=== PATIENT | male | born 2000 | race Caucasian/White ===

== ENCOUNTER → 2021-03-20 15:13 | Outpatient (CLI) | payer BC, SELFPAY ==
--- NOTE | ~2021-03-20 | XR_ITS ---
EXAMINATION: XR knee RT 3V DATE: 03/20/2021 15:40 INDICATION: Right knee pain. TECHNIQUE: 3 views of right knee were obtained. COMPARISON: None. FINDINGS: Bone alignment is normal. No fracture. Joint spaces are well maintained. There is no knee j oint effusion. IMPRESSION: 1. Normal right knee. Reviewed, dictated and finalized at location A. IMPRESSION: 1. Normal right knee.
== END ==
PROVIDERS: PCP Nurse Practitioner Family; Visit Provider Nurse Practitioner Family
DX: M25.561 Pain in right knee (principal)
CPT/HCPCS: 73562

== ENCOUNTER 2021-05-19 21:48 | Emergency (ER) | payer BC, SELFPAY ==
[2021-05-19 21:55] VITALS: BP 133/103; PULSE 75; RESP 16; TEMP 36.8; O2SAT 100
--- NOTE | 2021-05-19 21:59 | ED.GENADULT ---
HPI - General Adult General Chief complaint: Dental/Oral Stated complaint: post op pain Time Seen by Provider: 05/19/21 21:51 Source: patient and RN notes reviewed Mode of arrival: ambulatory Limitations: no limitations History of Present Illness HPI narrative: This is a 20 year old male who presents for evaluation of post operative bleeding s/p tonsillectomy. He had a tonsillectomy performed on 05/16/[address] Kobe Jaime . He reports his parents will not let him take any pain medication today so he started screaming at them. He developed bleeding around 2 pm from his surgical site. He reports his bleeding initially stopped but it started again prior to arrival. His bleeding stopped on his way to hospital. He reports 9/10 pain. Related Data Home Medications Medication Instructions Recorded Confirmed albuterol sulfate INHALATION 05/19/21 hydrocodone-acetaminophen 05/19/21 Allergies Allergy/AdvReac Type Severity Reaction Status Date / Time azithromycin Allergy Rash Verified 05/19/21 21:59 Penicillins Allergy Rash Verified 05/19/21 21:59 Review of Systems Review of Systems: All systems reviewed & are unremarkable except as noted in HPI and below PMFSH Past Medical History Medical History (Updated 05/20/21 @ 00:00 by Meghann Valle) Chronic tonsillitis Surgical History Surgical History (Updated 05/19/21 @ 22:05 by Leslee Rodriguez MD) S/P tonsillectomy Social History Social History (Updated 05/19/21 @ 22:05 by Leslee Rodriguez MD) Smoking status: Current every day smoker Substance use type: marijuana Exam Const: General: cooperative, no acute distress, alert, awake and Physically active Nutritional Appearance: average body habitus Orientation/consciousness: patient oriented x3 Limitations: no limitations HENMT: Face and sinus: face symmetric Mouth: Yes lip normal, Yes tongue normal, Yes moist mucous membranes and Yes other (right tonsillar neema with small area of what appears to be old blood, ) Throat: uvula midline Resp: Effort & Inspection: normal respiratory effort and able to speak in complete sentences Psych: Appearance: grossly normal Affect: normal affect Attitude: cooperative Thought content: Yes Normal thought content present Course Reevaluation(s) Reevaluation #1: Dr. Jaime was notified patient presented to ER. He does not have active bleeding now so he will be discharge home. He states patient should get his pain under control he prescribed enough pain medication. Patient can not have ibuprofen or NSAIDs. They gave patient 1 pain pill today. I also spoke with patient's mother who is concerned pain may get addicted. That seems understandable but if patient has severe pain they will allow him to have medication if needed. Date: 05/19/21 Time: 23:03 Vital Signs Vital signs: Vital Signs Temperature 98.2 F 05/19/21 21:55 Pulse Rate 75 05/19/21 21:55 Respiratory Rate 16 05/19/21 21:55 Blood Pressure 133/103 H 05/19/21 21:55 Pulse Oximetry 100 05/19/21 21:55 Temperature 98.2 F 05/19/21 21:55 Pulse Rate 62 05/19/21 23:11 Respiratory Rate 16 05/19/21 23:11 Blood Pressure 115/77 05/19/21 23:11 Pulse Oximetry 100 05/19/21 23:11 Medical Decision Making Vital Signs Vital Signs: Vital Signs Temperature 98.2 F 05/19/21 21:55 Pulse Rate 75 05/19/21 21:55 Respiratory Rate 16 05/19/21 21:55 Blood Pressure 133/103 H 05/19/21 21:55 Pulse Oximetry 100 05/19/21 21:55 Temperature 98.2 F 05/19/21 21:55 Pulse Rate 62 05/19/21 23:11 Respiratory Rate 16 05/19/21 23:11 Blood Pressure 115/77 05/19/21 23:11 Pulse Oximetry 100 05/19/21 23:11 Lab Data Lab results reviewed: Yes I reviewed the patient's lab results. Result diagrams: 05/19/21 22:08 Labs: Lab Results 05/19/21 05/19/21 Range/Units 22:08 22:08 WBC 7.2 (4.5-10.0) K/mm3 RBC 5.24 (4.6-6.20) M/mm3 Hgb 16.
[2021-05-19 22:13] LABS: Basophils Percent Auto 0.4 % (0.2-1.2); Eosinophils Absolute Auto 0.3 K/mm3 (0-0.3); Eosinophils Percent Auto 3.6 % (0-4.4); Hemoglobin 16.2 g/dL (14.0-18.0); Immature Granulocyte Absolute 0.01 K/mm3 (0.00-0.031); Immature Granulocyte Percent A 0.1 % (0-0.5); Lymphocytes Absolute Auto 2.12 K/mm3 (0.9-3.2); Lymphocytes Percent Auto 29.4 % (18.3-44.2); Mean Corpuscular HGB Conc 34.5 g/dl (32-36); Mean Corpuscular Hemoglobin 30.9 pg (26-34); Mean Corpuscular Volume 89.7 fl (80-100); Mean Platelet Volume 9.2 fl (7.4-10.4); Monocytes Absolute Auto 0.6 K/mm3 (0.1-0.6); Neutrophils Absolute Auto 4.2 K/mm3 (1.3-6.7); Neutrophils Percent Auto 58.5 % (45.5-73.1); Platelet Count Result 319 k/mm3 (150-375); Red Blood Count 5.24 M/mm3 (4.6-6.20); Red Cell Distribution Width 11.7 % (11.5-14.5); White Blood Count 7.2 K/mm3 (4.5-10.0)
[2021-05-19] MEDS: ONDANSETRON INJ 4 MG/2 ML VIAL IV PUSH (22:15)
[2021-05-19] MEDS: HYDROmorphone HCL INJ (*CRX) 1 MG/ML SYR 0.5 MG IV PUSH (22:15)
[2021-05-19] MEDS: SODIUM CHLORIDE 0.9% IV 1,000 ML 999 ML IV CONT (22:15)
[2021-05-19 23:11] VITALS: BP 115/77; PULSE 62; RESP 16; O2SAT 100
== END 2021-05-19 23:24 | disposition home or self-care (01) ==
PROVIDERS: Emergency Provider General Practice; PCP Nurse Practitioner Family
DX: K91.840 Postprocedural hemorrhage of a digestive system organ or structure following a digestive system procedure (principal); J02.9 Acute pharyngitis, unspecified
CPT/HCPCS: 36415; 85025; 86850; 86900; 86901; 96361; 96374; 96375; 99284; J1170; J2405; J7030

== ENCOUNTER 2022-04-08 16:09 | Emergency (ER) | payer BC, SELFPAY ==
[2022-04-08 16:11] VITALS: BP 117/81; PULSE 75; RESP 20; TEMP 36.7; O2SAT 99
--- NOTE | 2022-04-08 16:16 | ED.ALLEREA ---
HPI - Allergic Reaction General Chief complaint: Allergic Reaction Stated complaint: allergic reaction Time Seen by Provider: 04/08/22 16:11 History of Present Illness HPI narrative: 21-year-old male presents emergency room for evaluation of suspected allergic reaction. Patient states he has at a [place] restaurant, when he began to receive tongue swelling. Also associated with some numbness and tingling. Prior to arrival, patient took 100 mg of oral Benadryl.. On examination, patient states that his symptoms are beginning to resolve. Related Data Home Medications Medication Instructions Recorded Confirmed albuterol sulfate 90 mcg/actuation inhalation 05/19/21 aerosol inhaler hydrocodone 5 mg-acetaminophen 325 05/19/21 mg tablet Allergies Allergy/AdvReac Type Severity Reaction Status Date / Time azithromycin Allergy Rash Verified 05/19/21 21:59 Penicillins Allergy Rash Verified 05/19/21 21:59 Review of Systems Review of Systems: CONSTITUTIONAL: Denies fever, chills, or sweats. EYES: Denies visual changes, redness, or discharge. ENT: Denies rhinorrhea, congestion, sore throat, or otalgia. CARDIOVASCULAR: Denies chest pain, palpitations, or edema. RESPIRATORY: Denies cough or dyspnea. GASTROINTESTINAL: Denies abdominal pain, nausea, vomiting, or diarrhea. GENITOURINARY: Denies dysuria or hematuria. SKIN: Denies rash or itching. MUSCULOSKELETAL: Denies back pain, joint pain, or myalgia. NEUROLOGIC: Denies headache, numbness, dizziness, or weakness. PSYCHIATRIC: Denies anxiety or depression. [facility] Past Medical History Medical History Chronic tonsillitis Surgical History Surgical History S/P tonsillectomy Social History Social History Smoking status: Current every day smoker Substance use type: marijuana Exam Narrative: GENERAL: Well-appearing, well-nourished, no physical limitations, and in no acute distress. HEAD: Normocephalic, atraumatic. EYES: Conjunctivae normal, PERRLA and EOMI. ENT: External nose normal, Nares clear, no rhinorrhea or epistaxis. Mucous membranes moist. CHEST: Clear to auscultation. No respiratory distress. No wheezes rales or rhonchi. No tenderness. HEART: Regular rate and rhythm. No murmur heard. Normal peripheral pulses. ABDOMEN: Soft, nontender, nondistended, normal active bowel sounds. EXTREMITIES: Normal range of motion. No edema. No clubbing or cyanosis SKIN: Warm, dry, no rash. No noted wounds NEURO: No focal deficits. Alert and oriented x3. MAEW. CN's II-XI intact bilaterally, normal gait PSYCH: Cooperative. Normal mood and affect. Course Vital Signs Vital signs: Vital Signs Temperature 36.7 C 04/08/22 16:11 Pulse Rate 75 04/08/22 16:11 Respiratory Rate 20 04/08/22 16:11 Blood Pressure 117/81 04/08/22 16:11 Pulse Oximetry 99 04/08/22 16:11 Oxygen Delivery Room Air 04/08/22 16:11 Temperature 36.7 C 04/08/22 16:11 Pulse Rate 75 04/08/22 16:11 Respiratory Rate 20 04/08/22 16:11 Blood Pressure 117/81 04/08/22 16:11 Pulse Oximetry 99 04/08/22 16:11 Oxygen Delivery Room Air 04/08/22 16:11 Discharge Plan Discharge Clinical Impression: Allergic reaction Patient Disposition: Home, Self-Care Condition: Stable Instructions: Antibiotic Form, General Allergic Reaction (ED) Prescriptions: New prednisone 20 mg tablet 60 mg PO DAILY 5 Days Qty: 15 0RF epinephrine [EpiPen 2-Den] 0.3 mg/0.3 mL auto-injector 0.3 mg IM ONCE Qty: 2 0RF Rx Instructions: as a single dose; may repeat once No Action hydrocodone-acetaminophen 5-325 mg tablet albuterol sulfate 90 mcg/actuation HFA aerosol inhaler INHALATION Follow-up/Referrals: Marge,Christelle [employer] G[employer] OPERATOR [Primary Care Provider] - Time of Disposition: 17:01
[2022-04-08] MEDS: SODIUM CHLORIDE 0.9% IV 1,000 ML 999 ML IV CONT (16:18)
[2022-04-08] MEDS: methylPREDNISolone SOD SUCC 125 MG VIAL IV PUSH (16:18)
[2022-04-08] MEDS: FAMOTIDINE 20 MG/2 ML VIAL IV PUSH (16:19)
[2022-04-08 17:30] VITALS: BP 111/70; PULSE 81; RESP 18; O2SAT 100
== END 2022-04-08 17:32 | disposition home or self-care (01) ==
PROVIDERS: Emergency Provider Nurse Practitioner Family; PCP Nurse Practitioner Family
DX: T78.40XA Allergy, unspecified, initial encounter (principal)
CPT/HCPCS: 96361; 96374; 96375; 99284; J2930; J7030

== ENCOUNTER 2023-09-01 13:25 | Emergency (ER) | payer BC, SELFPAY ==
[2023-09-01 13:36] VITALS: BP 115/91; PULSE 72; RESP 16; TEMP 36.4; O2SAT 100
--- NOTE | 2023-09-01 14:02 | ED.URI ---
HPI - URI/Sore Throat General Chief Complaint: Upper Respiratory Infection Stated Complaint: BODY ACHES/CONGESTION/DRAINAGE/SORE THROAT/EARS/YO Time Seen by Provider: 09/01/23 14:02 Source: patient Mode of arrival: ambulatory Limitations: no limitations History of Present Illness HPI Narrative: 23 yo M presents with c/o sinus congesiton, pressure, headaches, PND for over a month. States last 3 days symptoms have been worse. Taking off brand zyrtec. Pain to R ear with muffled hearing. Afebrile. Recently flew on plane to visit family. all systems reviewed and negative except as noted above. Related Data Allergies Allergy/AdvReac Type Severity Reaction Status Date / Time azithromycin Allergy Rash Verified 09/01/23 14:04 Penicillins Allergy Rash Verified 09/01/23 14:04 Review of Systems Review of Systems: CONSTITUTIONAL: Denies fever, chills, or sweats. EYES: Denies visual changes, redness, or discharge. ENT: Reports rhinorrhea, congestion, postnasal drainage, right ear pain. Denies sore throat CARDIOVASCULAR: Denies chest pain, palpitations, or edema. RESPIRATORY: Denies cough or dyspnea. GASTROINTESTINAL: Denies abdominal pain, nausea, vomiting, or diarrhea. GENITOURINARY: Denies dysuria or hematuria. SKIN: Denies rash or itching. MUSCULOSKELETAL: Denies back pain, joint pain, or myalgia. NEUROLOGIC: Denies headache, numbness, or weakness. PSYCHIATRIC: Denies anxiety or depression. All other systems reviewed are negative, except as documented in HPI. PMFSH Past Medical History Medical History Chronic tonsillitis Surgical History Surgical History S/P tonsillectomy Social History Social History Smoking status: Current every day smoker Substance use type: marijuana Comments At time of signature, agree with nursing past medical, surgical, social and family history. There is no relevant family history pertinent to the presenting complaint. Exam Narrative: GENERAL: This is a well-nourished, well-developed patient, in no apparent distress. HEAD: normocephalic, atraumatic. EYES: PERRL. Sclera clear/white. Vision is grossly intact. EARS: External ears normal, auditory canals clear and without drainage, clear fluid bilateral TMs without erythema or perforation. Hearing grossly intact. NOSE: External nose normal with n clear nasal drainage, mild erythema to nares. Maxillary sinus tenderness bilaterally. THROAT: Mucous membranes moist, erythema postnasal drainage. NECK: Neck supple, non-tender without lymphadenopathy, masses or thyromegaly. CARDIOVASCULAR: Regular rate and rhythm without murmurs, gallops, or rubs. RESPIRATORY: Clear to auscultation. Breath sounds equal bilaterally. No wheezes, rales, or rhonchi. SKIN: warm, Dry, intact with no suspicious lesions or rash, good texture and turgor. NEURO: awake, alert, and oriented to person, place and time. There were no obvious focal neurologic abnormalities. EXTREMITIES: No joint tenderness, effusion, or edema noted. Course Course Level of Care: Express Care Visit Vital Signs Vital signs: Vital Signs Temperature 36.4 C L 09/01/23 13:36 Pulse Rate 72 09/01/23 13:36 Respiratory Rate 16 09/01/23 13:36 Blood Pressure 115/91 H 09/01/23 13:36 Pulse Oximetry 100 09/01/23 13:36 Temperature 36.4 C L 09/01/23 13:36 Pulse Rate 72 09/01/23 13:36 Respiratory Rate 16 09/01/23 13:36 Blood Pressure 115/91 H 09/01/23 13:36 Pulse Oximetry 100 09/01/23 13:36 Reviewed MDM - URI/Sore Throat MDM Narrative Medical decision making narrative: Negative COVID test. Will treat patient for bacterial sinusitis due to duration of symptoms and exam findings. Patient is aware of diagnosis, understands and agrees to treatment plan. Anticipatory guidance given. Patient agree
== END 2023-09-01 14:04 | disposition home or self-care (01) ==
PROVIDERS: Family Medicine; Emergency Provider Nurse Practitioner Family
DX: J01.90 Acute sinusitis, unspecified (principal); Z20.822 Contact with and (suspected) exposure to COVID-19; F17.200 Nicotine dependence, unspecified, uncomplicated; F12.90 Cannabis use, unspecified, uncomplicated
CPT/HCPCS: 87426; 99213; C9803; G0463